=== PATIENT | male | born 1980 | race African-American/Black ===

== ENCOUNTER 2016-09-26 12:46 | Emergency (ER) | payer SELFPAY ==
[2016-09-26 13:11] VITALS: BP 138/89
--- NOTE | 2016-09-26 13:30 | UC ---
Skin Complaint HPI - HPI Summary HPI Summary: pt presents with c/o "bump on left lower cheek in [place] that was tender and firm that he attempted to "pop" last evening. Pt then stated he woke this moring with upper lip swelling and tenderness. denies any known allergies and or injury . - History of Current Complaint Chief Complaint: UCSkin Time Seen by Provider: 09/26/16 13:24 Stated Complaint: FACE/LIP SWOLLEN/PAIN Hx Obtained From: Patient Onset/Duration: Sudden Onset, Lasting Hours, Still Present Timing: Constant Onset Severity: Mild Current Severity: Moderate Location: Face - upper lip Character: Swelling, Painful Aggravating: Touch Alleviating: Unknown Associated Signs & Symptoms: Positive: Tenderness - Allergy/Home Medications Allergies/Adverse Reactions: Allergies Allergy/AdvReac Type Severity Reaction Status Date / Time No Known Allergies Allergy Verified 09/26/16 13:07 Review of Systems Constitutional: Negative Skin: Other - upper lip swelling Eyes: Negative ENT: Other - upper lip swelling Respiratory: Negative Cardiovascular: Negative Gastrointestinal: Negative Genitourinary: Negative Motor: Negative Neurovascular: Negative Musculoskeletal: Negative Neurological: Negative Psychological: Negative All Other Systems Reviewed And Are Negative: Yes PMH/Surg Hx/FS Hx/Imm Hx Previously Healthy: Yes - Surgical History Surgical History: None - Family History Known Family History: Positive: Cardiac Disease - Social History Alcohol Use: Occasionally Alcohol Amount: 6 every two to three days Substance Use Type: None Smoking Status (MU): Heavy Every Day Tobacco Smoker Type: Cigarettes Amount Used/How Often: 1/2 PPD Length of Time of Smoking/Using Tobacco: 8 Years Have You Smoked in the Last Year: Yes Household Exposure Type: Cigarettes Physical Exam Triage Information Reviewed: Yes Appearance: Pain Distress - mild Vital Signs: Initial Vital Signs Temp 98.8 F 09/26/16 13:07 Pulse 66 09/26/16 13:07 Resp 16 09/26/16 13:07 BP 138/89 09/26/16 13:07 Pulse Ox 100 09/26/16 13:07 Vital Signs Reviewed: Yes Eye Exam: Normal ENT Exam: Other ENT: Positive: Other: - upper lip swelling, mid, tenderness, small firm moveable pulgged hair follicles scattered on left side of cheek. Dental Exam: Normal Neck exam: Normal Respiratory Exam: Normal Cardiovascular Exam: Normal Musculoskeletal Exam: Normal Neurological Exam: Normal Psychological Exam: Normal Skin Exam: Other - mid upper lip swelling and tenderness Course/Dx - Differential Diagnoses - Skin Complaint Differential Diagnoses: Allergic Reaction, Angioedema, Other - folliculitis - Diagnoses Provider Diagnoses: angioedema. folliculitis Discharge - Discharge Plan Condition: Stable Disposition: HOME Prescriptions: Cephalexin CAP* [Keflex 500 CAP*] 500 mg PO Q12H #14 cap Cetirizine* [ZyrTEC 10 MG TAB*] 10 mg PO DAILY #10 tab predniSONE TAB* [Deltasone TAB*] 30 mg PO DAILY #12 tab Patient Education Materials: Folliculitis (ED), Angioedema (ED) Referrals: Fidencio Mercer MD [Primary Care Provider] - If Needed
[2016-09-26] MEDS ORDERED: predniSONE TAB* 10 MG PO ONE (13:40)
[2016-09-26] MEDS ORDERED: Ibuprofen TAB* 400 MG PO ONE (13:40)
== END 2016-09-26 13:52 | disposition home or self-care (01) ==
LOC: UCCORT 12:46
DX: T78.3XXA Angioneurotic edema, initial encounter (principal); L73.9 Follicular disorder, unspecified; F17.210 Nicotine dependence, cigarettes, uncomplicated; X58.XXXA Exposure to other specified factors, initial encounter; Y92.9 Unspecified place or not applicable
CPT/HCPCS: 99212; A9270-GY; G0463; J7512

== ENCOUNTER 2017-03-08 09:11 | Emergency (ER) | payer SELFPAY | END 2017-03-08 11:22 | disposition left against medical advice (07) | LOC: UCCORT 09:11 | DX: Z02.9 Encounter for administrative examinations, unspecified (principal); Z53.21 Procedure and treatment not carried out due to patient leaving prior to being seen by health care provider ==

== ENCOUNTER 2017-04-17 11:38 | Emergency (ER) | payer OTHER ==
[2017-04-17 12:57] VITALS: BP 146/102
--- NOTE | 2017-04-17 13:49 | UC ---
Skin Complaint HPI - HPI Summary HPI Summary: patient has large boil under the right armpit, it has grown over the past 4 days , despite hot packs. afebrile, no lymphadenopathy - History of Current Complaint Chief Complaint: UCSkin Time Seen by Provider: 04/17/17 12:59 Stated Complaint: LUMP RIGHT UNDERARM Hx Obtained From: Patient Onset/Duration: Sudden Onset, Lasting Days Skin Exposure Onset/Duration: Days Ago Timing: Constant Onset Severity: Mild Current Severity: Severe Pain Intensity: 10 Character: Swelling, Redness, Raised, Painful Aggravating Factor(s): Touch Alleviating Factor(s): Nothing - Allergy/Home Medications Allergies/Adverse Reactions: Allergies Allergy/AdvReac Type Severity Reaction Status Date / Time No Known Allergies Allergy Verified 04/17/17 12:57 Review of Systems Constitutional: Negative Skin: Other - abscess Eyes: Negative ENT: Negative Respiratory: Negative Cardiovascular: Negative Gastrointestinal: Negative Genitourinary: Negative Motor: Negative Neurovascular: Negative Musculoskeletal: Negative Neurological: Negative Psychological: Negative Is Patient Immunocompromised?: No All Other Systems Reviewed And Are Negative: Yes PMH/Surg Hx/FS Hx/Imm Hx Previously Healthy: Yes - Surgical History Surgical History: None - Family History Known Family History: Positive: Cardiac Disease - Social History Alcohol Use: None Alcohol Amount: 6 every two to three days Substance Use Type: None Smoking Status (MU): Heavy Every Day Tobacco Smoker Type: Cigarettes Amount Used/How Often: 1/4 ppd Length of Time of Smoking/Using Tobacco: 8 Years Have You Smoked in the Last Year: Yes Household Exposure Type: Cigarettes Physical Exam Triage Information Reviewed: Yes Appearance: Well-Appearing, Well-Nourished, Pain Distress Vital Signs: Initial Vital Signs Temp 98.9 F 04/17/17 12:52 Pulse 93 04/17/17 12:52 Resp 16 04/17/17 12:52 BP 146/102 04/17/17 12:52 Pulse Ox 100 04/17/17 12:52 Vital Signs Reviewed: Yes Eye Exam: Normal ENT Exam: Normal Dental Exam: Normal Neck exam: Normal Neck: Positive: Supple, Nontender, No Lymphadenopathy Respiratory Exam: Normal Respiratory: Positive: Chest non-tender, Lungs clear, Normal breath sounds Cardiovascular Exam: Normal Cardiovascular: Positive: RRR, No Murmur, Pulses Normal Abdominal Exam: Normal Abdomen Description: Positive: Nontender, No Organomegaly, Soft Bowel Sounds: Positive: Present Musculoskeletal Exam: Normal Musculoskeletal: Positive: Strength Intact, ROM Intact, No Edema Neurological Exam: Normal Neurological: Positive: Alert, Muscle Tone Normal Psychological Exam: Normal Skin: Positive: Other - abscess under right axilla, indurated, about 7 cm in diameter, pustule on head Course/Dx - Course Course Of Treatment: hx obtained, exam performed, meds reviewed, I and D of abscess performed, educated on monitoring of HBP and need for diabetes screening due to family HX and multiple abscess. placed on ABX - Differential Diagnoses - Skin Complaint Differential Diagnoses: Abscess - Diagnoses Provider Diagnoses: abscess under the right axilla Discharge - Discharge Plan Condition: Stable Disposition: HOME Prescriptions: Cephalexin CAP* [Keflex CAP*] 500 mg PO TID #42 cap Patient Education Materials: Abscess (ED) Referrals: No Primary Care Phys,NOPCP [Primary Care Provider] - Additional Instructions: 1. Take the medication for a full week 2. Follow up with a medical provider, you need to find a primary doctor, your Blood pressure has been elevated for multiple visits here at Urgent Care you also need to be screened for Diabetes. 3. Hot pack the under arm area multiple times a day, keep absorbant dressing in place until healed. 4. Follow up as needed.
== END 2017-04-17 14:08 | disposition home or self-care (01) ==
LOC: UCCORT 11:38
DX: L02.411 Cutaneous abscess of right axilla (principal); F17.210 Nicotine dependence, cigarettes, uncomplicated
CPT/HCPCS: 10060; 99212; G0463

== ENCOUNTER 2017-11-29 17:02 | Emergency (ER) | payer OTHER ==
[2017-11-29 18:14] VITALS: BP 111/69
--- NOTE | 2017-11-29 18:30 | UC ---
Rectal Pain HPI - HPI Summary HPI Summary: developed pain and swelling in the groin over the last two days. denies fever , chills, symptoms began two days ago with mild pain localized to the perineum - History Of Current Complaint Chief Complaint: Gala Stated Complaint: LUMP ON RT LEG Time Seen by Provider: 11/29/17 18:22 Onset/Duration: Gradual Onset, Lasting Days Timing: Constant Severity Currently: Severe Pain Intensity: 10 Location Of Pain: Anal Character: Sharp Aggravating Factor(s): Walking Associated Signs And Symptoms: Positive: Negative - denies dysuria or fever or chills - Allergies/Home Medications Allergies/Adverse Reactions: Allergies Allergy/AdvReac Type Severity Reaction Status Date / Time No Known Allergies Allergy Verified 11/29/17 18:06 Home Medications: Home Medications NK [No Home Medications Reported] 11/29/17 [History Confirmed 11/29/17] PMH/Surg Hx/FS Hx/Imm Hx Previously Healthy: Yes - Surgical History Surgical History: None - Family History Known Family History: Positive: Cardiac Disease - Social History Alcohol Use: Weekly Alcohol Amount: 1/WEEK Substance Use Type: None Smoking Status (MU): Heavy Every Day Tobacco Smoker Type: Cigarettes Amount Used/How Often: 1/4 ppd Length of Time of Smoking/Using Tobacco: 8 Years Have You Smoked in the Last Year: Yes Household Exposure Type: Cigarettes - Immunization History Most Recent Tetanus Shot: UTD Review of Systems Constitutional: Negative Skin: Negative Eyes: Negative ENT: Negative Respiratory: Negative Cardiovascular: Negative Gastrointestinal: Negative Genitourinary: Negative, Other - pain in the perineum Motor: Negative Neurovascular: Negative Musculoskeletal: Negative Neurological: Negative Psychological: Negative Is Patient Immunocompromised?: No All Other Systems Reviewed And Are Negative: Yes Physical Exam Triage Information Reviewed: Yes Appearance: Pain Distress Vital Signs: Initial Vital Signs Temp 36.6 C 11/29/17 18:06 Pulse 76 11/29/17 18:06 Resp 16 11/29/17 18:06 BP 111/69 11/29/17 18:06 Pulse Ox 100 11/29/17 18:06 Vital Signs Reviewed: Yes Eye Exam: Normal Eyes: Positive: Conjunctiva Clear ENT Exam: Normal ENT: Positive: Normal ENT inspection Dental Exam: Normal Neck exam: Normal Neck: Positive: Supple Respiratory Exam: Normal Respiratory: Positive: Chest non-tender Cardiovascular Exam: Normal Cardiovascular: Positive: RRR Abdominal Exam: Normal Male Genital Exam: Positive: Other - pain and swelling in the perineum adjacent to the scrotum, exquisitely tender, some fluctuance to light touch Musculoskeletal Exam: Normal Neurological Exam: Normal Neurological: Positive: Alert Rectal Pain Course/Dx - Differential Dx/Diagnosis Provider Diagnoses: perineal cellulitis, fourniers gangrene Discharge - Sign-Out/Discharge Documenting (check all that apply): Patient Departure All imaging exams completed and their final reports reviewed: Yes - Discharge Plan Condition: Fair Disposition: TRANS [facility]IGHER [facility] Patient Education Materials: Necrotizing Fasciitis (DC) Referrals: No Primary Care Phys,NOPCP [Primary Care Provider] - - Billing Disposition and Condition Condition: FAIR Disposition: Trans Higher Lvl of Care Fac
== END 2017-11-29 18:41 | disposition short-term general hospital (02) ==
LOC: UCCORT 17:02
DX: L03.315 Cellulitis of perineum (principal); N49.3 Fournier gangrene; F17.210 Nicotine dependence, cigarettes, uncomplicated
CPT/HCPCS: 99202; G0463